=== PATIENT | female | born 1995 | race African-American/Black ===

== ENCOUNTER 2018-09-22 12:31 | Emergency (ER) | payer MEDICAID ==
[~2018-09-22] VITALS: Ht 157.5 cm; Wt 49.9 kg
[2018-09-22 12:35] VITALS: Ht 157.5 cm; Wt 49.9 kg
[2018-09-22 13:21] LABS: BASOPHIL % 0.5 % (0-2); PLATELET COUNT 256 x10^3mcL (130-400)
[2018-09-22 13:22] LABS: RED CELL DISTRIBUTION WIDTH 23.1 % (11.5-14.5)
[2018-09-22 13:27] LABS: CALCIUM 8.4 mg/dL (8.5-10.1); CARBON DIOXIDE 17.7 mmol/L (21-32); CHLORIDE SERUM 103 mmol/L (98-107); CREATININE SERUM 0.8 mg/dL (0.6-1.0); GFR1 > 60 mL/min; GLUCOSE SERUM 68 mg/dL (74-106); POTASSIUM SERUM 3.6 mmol/L (3.5-5.1); SODIUM SERUM 142 mmol/L (136-145)
[2018-09-22 13:31] LABS: ALBUMIN 3.9 g/dL (3.4-5.0); ALKALINE PHOSPHATASE 91 U/L (46-116); ALT/SGPT 110 U/L (14-59); AST/SGOT 148 U/L (15-37); BILIRUBIN TOTAL 0.34 mg/dL (0.20-1.00); CHOLESTEROL 165 mg/dL (<200); PHOSPHOROUS 5.4 mg/dL (2.5-4.9); TOTAL PROTEIN, SERUM 8.2 g/dL (6.4-8.2); URIC ACID 5.3 mg/dL (2.6-6.0)
[2018-09-22 13:32] LABS: HDL CHOLESTEROL 112 mg/dL (40-60)
[2018-09-22 14:15] LABS: ovalocyte/elliptocyte 1+; rbc morphology (normal/abnorm) ABNORMAL (NORMAL); schistocyte (helmet cell) 1+
[2018-09-22 15:41] LABS: AMPHETAMINE QUAL UR NONE DETECTED (See below)
[2018-09-22 15:50] LABS: UA SPECIFIC GRAVITY >=1.030 (1.005-1.035); microscopic required? YES; urine erythrocyte TRACE (NEGATIVE)
[2018-09-22 16:04] VITALS: BP 129/92
== END 2018-09-22 16:08 | disposition home or self-care (01) ==
LOC: ED 12:31
PROVIDERS: Emergency Medicine
DX: E16.2 Hypoglycemia, unspecified (principal); R00.2 Palpitations
CPT/HCPCS: 82962; Q0092